=== PATIENT | male | born 1975 | race African-American/Black ===

== ENCOUNTER 2018-12-03 18:49 | Emergency (ER) | payer MEDICAID ==
[~2018-12-03] VITALS: Ht 172.7 cm; Wt 84.0 kg
[2018-12-03 19:09] VITALS: BP 131/67
== END 2018-12-03 22:00 | disposition left against medical advice (07) ==
LOC: ER 18:49
DX: M79.18 Myalgia, other site (principal); Z53.21 Procedure and treatment not carried out due to patient leaving prior to being seen by health care provider

== ENCOUNTER 2019-09-28 11:20 | Emergency (ER) | payer MEDICAID ==
[~2019-09-28] VITALS: Ht 175.3 cm; Wt 84.0 kg
[2019-09-28 12:36] VITALS: BP 149/82
== END 2019-09-28 16:55 | disposition left against medical advice (07) ==
LOC: ER 11:20
DX: S09.90XA Unspecified injury of head, initial encounter (principal); Z53.21 Procedure and treatment not carried out due to patient leaving prior to being seen by health care provider; X58.XXXA Exposure to other specified factors, initial encounter; Y93.89 Activity, other specified; Y92.89 Other specified places as the place of occurrence of the external cause; Y99.8 Other external cause status

== ENCOUNTER 2019-11-28 13:04 | Emergency (ER) | payer MEDICAID ==
[~2019-11-28] VITALS: Ht 177.8 cm; Wt 84.0 kg
[2019-11-28 13:18] VITALS: BP 129/76
[2019-11-28] MEDS ORDERED: ACETAMINOPHEN 325MG TABLET PO ONE (14:30)
[2019-11-28] MEDS ORDERED: KETOROLAC 30MG/ML VIAL IM ONE (14:30)
== END 2019-11-28 15:44 | disposition home or self-care (01) ==
LOC: ER 13:04
DX: M25.561 Pain in right knee (principal); Z87.828 Personal history of other (healed) physical injury and trauma; W01.0XXA Fall on same level from slipping, tripping and stumbling without subsequent striking against object, initial encounter; Y93.89 Activity, other specified; Y92.018 Other place in single-family (private) house as the place of occurrence of the external cause
CPT/HCPCS: 73562; 96372; 99283; J1885; L1830